=== PATIENT | female | born 1985 | race Two or more races ===

== ENCOUNTER 2020-04-20 03:50 | Emergency (ER) | payer SELFPAY ==
[~2020-04-20] VITALS: Ht 160 cm; Wt 79.9 kg
--- NOTE | 2020-04-20 04:13 | NUR ---
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
--- NOTE | 2020-04-20 04:24 | NUR ---
Patient presents to ER c/o UTI symptoms including burning and pain with urination and urinary frequency x7 days. C/o low back since today. Has not been evaluated by a physician for symptoms. Patient is in NAD. REspirations even and unlabored.
[2020-04-20 04:52] LABS: HCG UR SG 1.019 (1.003-1.030); MICROSCOPIC AUTO
[2020-04-20 04:58] LABS: BASOPHILS % (AUTO) 1 % (0-1); EOSINOPHILS # (AUTO) 0.27 x10^3/uL (0-0.4); EOSINOPHILS % (AUTO) 2 % (1-7); LYMPHOCYTES # (AUTO) 2.53 x10^3/uL (1-3.4); LYMPHOCYTES % (AUTO) 18 % (22-44); MD NO; MEAN CORPUSCULAR HEMOGLOBIN 25.5 pg (27.0-34.8); MEAN CORPUSCULAR HGB CONC 32.3 g/dL (32.4-35.8); MEAN CORPUSCULAR VOLUME 78.9 fL (80-100); MEAN PLATELET VOLUME 7.4 fL (7.4-10.4); MONOCYTES # (AUTO) 0.81 x10^3/uL (0.2-0.8); MONOCYTES % (AUTO) 6 % (2-9); NEUTROPHILS # (AUTO) 10.69 x10^3/uL (1.8-6.8); NEUTROPHILS % (AUTO) 74 % (42-75); PLATELET COUNT 352 x10^3/uL (130-400); RED CELL DISTRIBUTION WIDTH 15.9 % (9.6-15.2)
[2020-04-20] MEDS ORDERED: PHENAZOPYRIDINE 200 MG TABLET PO ONE (05:00)
[2020-04-20 05:05] LABS: ALBUMIN 3.5 g/dL (3.4-5.0); ANION GAP 7 mmol/L (5-15); CALCIUM 8.9 mg/dL (8.5-10.1); CHLORIDE 107 mmol/L (98-107); CREATININE 0.65 mg/dL (0.55-1.02)
[2020-04-20] MEDS ORDERED: PHENAZOPYRIDINE 200 MG TABLET ONE (05:13)
[2020-04-20] MEDS ORDERED: CEFTRIAXONE 1,000 MG IM ONE (05:30)
[2020-04-20] MEDS ORDERED: LIDOCAINE-MPF 1%, 2ML ONE (05:35)
[2020-04-20] MEDS ORDERED: CEFTRIAXONE 1,000 MG ONE (05:35)
[2020-04-20 05:37] VITALS: BP 102/64
--- NOTE | 2020-04-20 06:16 | NUR ---
Discharge instructions given. All questions and concerns addressed. Patient ambulatory with a steady gait. Belongings with patient.
== END 2020-04-20 06:18 | disposition home or self-care (01) ==
LOC: ED 05:13
DX: N10 Acute pyelonephritis (principal); R30.0 Dysuria; R10.9 Unspecified abdominal pain
CPT/HCPCS: 36415; 80048; 81001; 81025; 82040; 85025; 87077; 87086; 96372; 99283; J0696; 87186